=== PATIENT | female | born 1975 | race Caucasian/White ===

== ENCOUNTER 2020-11-22 09:19 | Outpatient (CLI) | payer OTHER ==
[2020-11-22] MEDS ORDERED: FENTANYL PF 100 MCG/2ML ONE (10:45)
[2020-11-22] MEDS ORDERED: FLUMAZENIL 0.1 MG/1 ML, 5ML ONE (10:45)
[2020-11-22] MEDS ORDERED: MIDAZOLAM 1 MG/ML, 5ML ONE (10:45)
[2020-11-22] MEDS ORDERED: NALOXONE 1 MG/ML, 2ML ONE (10:45)
== END 2020-11-22 23:59 | disposition home or self-care (01) ==
LOC: RAD 09:19
PROVIDERS: ATTEND Nurse Practitioner
DX: M51.36 Other intervertebral disc degeneration, lumbar region (principal); M25.552 Pain in left hip; Z79.899 Other long term (current) drug therapy
CPT/HCPCS: 72148; 73721; 99156; 99157; J2250; J3010; J2310